=== PATIENT | female | born 1980 | race Caucasian/White ===

== ENCOUNTER 2025-08-06 06:24 | Day surgery (SDC) | payer BC, SELFPAY | END 2025-08-06 10:38 | disposition home or self-care (01) | LOC: GI 06:24 | PROVIDERS: ATTENDING PHYSICIAN Surgery | DX: Z12.11 Encounter for screening for malignant neoplasm of colon (principal); K63.3 Ulcer of intestine; K62.89 Other specified diseases of anus and rectum; K52.89 Other specified noninfective gastroenteritis and colitis | CPT/HCPCS: 45380; 88305 ==